=== PATIENT | male | born 1995 | race Hispanic/Latino ===

== ENCOUNTER 2017-12-09 20:50 | Emergency (ER) | payer BC ==
[~2017-12-09] VITALS: Ht 167.6 cm; Wt 68.0 kg
[2017-12-09 22:09] VITALS: BP 128/70
== END 2017-12-09 21:55 | disposition home or self-care (01) ==
LOC: FSED 20:50
DX: R07.89 Other chest pain (principal)
CPT/HCPCS: 93005; 99283